=== PATIENT | female | born 1990 | race Two or more races ===

== ENCOUNTER 2024-12-11 07:14 | Inpatient (IN) | payer OTHER, SELFPAY ==
[2024-12-11] VITALS (122 sets, daily range): BP systolic 85–134; BP diastolic 47–99; PULSE 67–148; TEMP 35.9–36.8; O2SAT 96–100; BMI 35.3
--- OUTSIDE RECORDS SUMMARY | 2024-12-11 07:33 | XMS_ITS | Clinical Summary ---
Author Organization [facility] Address [address] [place] [id number] Care Team Providers Care Rn Spine Name Role Phone Renetta Serna DO Primary Care Provider [phone] Immunizations Immunization Administration Dates Next Due MODERNA COVID-19 (12+) MRNA, LNP-S, PF, 100 MCG/ 0.5 ML DOSE 10/01/2020,09/03/2020 Social History Tobacco Use Types Packs/Day Years Used Date Smoking Tobacco: Never Assessed Comments Unknown Sex and Gender Information Value Date Recorded Sex Assigned at Not on file Legal Sex Female 7:40 PM CDT Gender Identity Not on file Sexual Orientation Not on file Plan of Treatment Health Maintenance Due Date Last Done Comments Cervical Cancer Screening Pa p Smear (Age 30 to 64) Every 3 Years 1992 Annual Physical 1995 Hepatitis C 2010 DTaP, Tdap and Td Vaccines ( 1 - Tdap) 2011 Hepatitis B Vaccines (1 of 3 - 19+ 3-dose series) 2011 Cervical Cancer Screening Pa p with HPV Testing (Age 30 to 64) Every 5 Years 2022 Cervical Cancer Screening wi th HPV 2022 COVID-19 Vaccine (3 - 2023-2 5 season) 2024 10/01/2020, 09/03/2020 HPV Vaccines Aged Out No longer eligi ble based on patient's age to complete this topic Meningococcal B Vaccine Aged Out No l onger eligible based on patient's age to complete this topic Meningococcal Vaccine Aged Out No jair phoebe eligible based on patient's age to complete this topic Pneumococcal Vaccine: Pediatrics (0 to 5 Years) and At-Risk Patients (6 to 49 Years) Aged Out No longer eligible b ased on patient's age to complete this topic RSV Immunizations Under 20 Months Aged Out No longer eligible b ased on patient's age to complete this topic Insurance [facility] [address] [place] [id number] Care Teams Rn Spine Relationship Specialty Start Date End Date Renetta Serna DO [address] [place] [id number] PCP - General 03/04/14
--- OUTSIDE RECORDS SUMMARY | 2024-12-11 07:33 | XMS_ITS | Clinical Summary ---
Author Organization [facility] [address] Address [address] [place] [id number] Care Team Providers Care Supervisor Drawing Name Role Phone Unknown, Notinfile Primary Care Provider Unavail able Thea Almodovar DPT Unavailable [phone] Allergies No known active allergies Medications levonorgestreL (Kyleena) IUD 1 each by intrauterine route once Active Active Problems Comments Yes No known active problems Social History Tobacco Use Types Packs/Day Years Used Date Smoking Tobacco: Never Smokeless Tobacco: Never AUDIT-C Answer Date Recorded Q1: How often do you have a drink containing alc ohol? Monthly or less 04/03/2023 Q2: How many drinks containi ng alcohol do you have on a typical day when you are drinking? 1 or 2 04/03/2023 Q3: How often do you have si x or more drinks on one occasion? Less than monthly 04/03/2023 Comments Yes Sex and Gender Information Value Date Recorded Sex Assigned at Not on file Legal Sex Female 9:52 AM CDT Gender Identity Not on file Sexual Orientation Not on file Obstetrics History Para Term AB IAB SAB Ectopic Multiple Livin g Live Births 1 Date Outcome GA Total Labor Labor/2nd/3rd Weight Sex Type Anes PTL Nian A1 A5 Name Clin Current Last Filed Vital Signs Vital Sign Reading Time Taken Comments Blood Pressure 100/60 04/03/2023 10:09 AM CDT Pulse - - Temperature - - Respiratory Rate - - Oxygen Saturation - - Inhaled Oxygen Concentration - - Weight 62.6 kg (138 lb) 04/03/2023 10:09 AM CDT Height 160 cm (5' 3 ) 04/03/2023 10:09 AM CDT Body Mass Index 24.45 04/03/2023 10:09 AM CDT Plan of Treatment Health Maintenance Due Date Last Done Comments Cervical Cancer Screening 1992 Depression Screening 1992 Hepatitis C Screening 1992 DTaP/Tdap/Td Vaccine (1 - Tdap) 2003 Varicella Vaccines (1 of 2 - 13+ 2-dose series) 2005 Hepatitis B Screening 2010 Regular Well Visit/Exam 18-64 04/03/2024 04/03/2023 Covid-19 Vaccine (4 - 2023-2 5 season) 2024 07/25/2021, 10/01/2020, 09/03/2020 Influenza Vaccine (#1) 2024 2, 06/15/2020, 07/27/2019 HPV Vaccines Aged Out No longer eligi ble based on patient's age to complete this topic Pneumococcal vaccine <65 Aged Out No longer eligible based on patient's age to complete this topic Insurance [employer] OPEN ACCESS [employer] OPEN ACCESS Care Teams Supervisor Drawing Relationship Specialty Start Date End Date Unknown, Notinfile PCP - General 03/10/23 Thea Almodovar DPT [address] [facility] [address] [place] [id number] Physical Therapist Physical Therapy 07/12/24
--- OUTSIDE RECORDS SUMMARY | 2024-12-11 07:33 | XMS_ITS | Referral Summary ---
Author Organization [facility] [address] Address [address] [place] [id number] Care Team Providers Care Nuclear Medicine Specialist Name Role Phone Unknown, Notinfile Primary Care Provider Unavail able Thea Almodovar DPT Unavailable Allergies No known active allergies Medications levonorgestreL [...] on file Sexual Orientation Not on file Last Filed Vital Signs Vital Sign Reading [...] 04/03/2023 10:09 AM CDT Plan of Treatment Not on file Insurance [employer] OPEN ACCESS [employer]es [employer] OPEN ACCESS Care Teams Nuclear Medicine Specialist Relationship Specialty Start Date End Date Unknown, Notinfile PCP - General 03/10/23 Thea Almodovar DPT [id number] [facility] [address] [place] [address] Physical Therapist Physical Therapy 07/12/24
[2024-12-11 07:58] LABS: Basophils Percent Auto 0.3 % (0.2-1.2); Eosinophils Absolute Auto 0.2 K/mm3 (0-0.3); Eosinophils Percent Auto 2.4 % (0-4.4); Hemoglobin 12.6 g/dL (12.0-15.0); Immature Granulocyte Absolute 0.04 K/mm3 (0.00-0.031); Immature Granulocyte Percent A 0.5 % (0-0.5); Lymphocytes Absolute Auto 1.63 K/mm3 (0.9-3.2); Lymphocytes Percent Auto 21.8 % (18.3-44.2); Mean Corpuscular HGB Conc 34.1 g/dl (32-36); Mean Corpuscular Volume 91.1 fl (80-100); Mean Platelet Volume 12.1 fl (7.4-10.4); Monocytes Absolute Auto 0.5 K/mm3 (0.1-0.6); Monocytes Percent Auto 6.3 % (2.6-8.5); Neutrophils Absolute Auto 5.2 K/mm3 (1.3-6.7); Neutrophils Percent Auto 68.7 % (45.5-73.1); Platelet Count Result 118 k/mm3 (150-375); Red Blood Count 4.06 M/mm3 (4.2-5.4); Red Cell Distribution Width 12.9 % (11.5-14.5); White Blood Count 7.5 K/mm3 (4.5-10.0)
[2024-12-11 09:25] LABS: Syphilis IgG/IgM Antibody Negative (Negative)
[2024-12-11 09:40] LABS: HIV 1/2 Ab P24 Ag Result Negative (Negative)
--- NOTE | 2024-12-11 09:51 | PM.IMHP ---
H&P: HPI History of Present Illness Date/Time: 12/11/24 09:51 Chief Complaint: Rupture Her membranes at term Narrative: 34-year-old 1 para 0 whose last menstrual period was 03/10/2025, EDC 12/15/2024, confirmed by 9 week ultrasound presents at 39 and half weeks gestation with spontaneous rupture membranes at approximately 4:50 a.m.. She has a history of HSV 1 generally has been on preventive care. She is negative for group B strep Review of Systems Review of Systems: All systems reviewed & are unremarkable except as noted in HPI and below PMFSH Family History Family History Other Unknown family medical history Social History Social History Smoking status: Never smoker Second hand tobacco smoke exposure: No Substance use: never Do You Feel Safe in your Home?: Yes Lack of Transportation: No Lack of Food: Never True Current Housing: I Have Housing Concerned About Future Housing: No Difficulty Paying Gas/Electric Bills: No Difficulty Paying for Meds: No Currently Unemployed: No Education: Master's Degree or Higher Difficulty w/ Childcare or Family Care: No Spiritual care concerns: No Meds Home Medications and Allergies Home Medications ?Medication ?Instructions ?Recorded ?Confirmed ?Type vit no.95-ferrous 1 tablet PO DAILY 11/15/24 11/15/24 History fumarate 28 mg-folic acid 800 mcg tablet () Allergies Allergy/AdvReac Type Severity Reaction Status Date / Time No Known Allergies Allergy Verified 11/15/24 13:53 Vital Signs Vital Signs - 24 hr 12/11/24 08:17 12/11/24 08:19 12/11/24 08:26 Temperature 96.7 F L Pulse Rate 100 Blood Pressure 123/61 Oxygen Delivery Room Air 12/11/24 08:33 12/11/24 09:01 Temperature Pulse Rate 102 H 87 Blood Pressure 116/47 L 107/59 L Oxygen Delivery Exam Const: General: cooperative, healthy appearing and comfortable Nutritional Appearance: overweight Orientation/consciousness: oriented to person, oriented to place and oriented to time HENMT: Head: normal to inspection Resp: Effort & Inspection: normal respiratory effort Cardio: Rate: regular rate Rhythm: regular rhythm Heart sounds: S1 normal heart sound present and S2 normal heart sound present GI: Inspection: normal to inspection (Gravid soft uterus) : External Female Exam: normal external appearance Speculum Exam - Vagina: normal appearance of the vagina Speculum Exam - Cervix: normal appearance of the cervix (Cervix /. Clear fluid seen. FHTs reassuring) H&P: Results Labs Labs: Short CBC 12/11/24 Range/Units 07:47 WBC 7.5 (4.5-10.0) K/mm3 Hgb 12.6 (12.0-15.0) g/dL Hct 37.0 (37.0-47.0) % Plt Count 118 L (150-375) k/mm3 Assessment and Plan Assessment and plan (1) Term : Code(s): Z34.90 - Encounter for supervision of normal , unspecified, unspecified trimester Status: Acute Plan Spontaneous vaginal delivery is expected. She is an epidural candidate
[2024-12-11] MEDS: LACTATED RINGERS 1,000 ML 125 ML IV CONT ×3 (11:42→19:32)
[2024-12-11] MEDS: OXYTOCIN 30 UNITS/NS 500 ML 30 UNITS/500 ML BAG IV CONT (11:43)
--- NOTE | 2024-12-11 16:49 | WPDANESEPP ---
Anes - Eval Pre Procedure Procedure: Labor Pain Management Date/Time: 12/11/24 16:49 Surgeon: Leighann Oakley Preop Diagnosis: pain during labor Pre Op Diagnosis: Leaking Patient Data Age: 34 Gender: F Height: 1.6 m Weight: 90.5 kg Last Vital Signs Temp 98 F 12/11/24 12:00 Pulse 92 12/11/24 15:01 BP 93/71 L 12/11/24 15:01 O2 Del Method Room Air 12/11/24 08:19 Allergies Allergy/AdvReac Type Severity Reaction Status Date / Time No Known Allergies Allergy Verified 11/15/24 13:53 Home Medications ?Medication ?Instructions ?Recorded ?Confirmed ?Type vit no.95-ferrous 1 tablet PO DAILY 11/15/24 11/15/24 History fumarate 28 mg-folic acid 800 mcg tablet () Laboratory Tests 12/11/24 07:47 WBC 7.5 K/mm3 (4.5-10.0) RBC 4.06 L M/mm3 (4.2-5.4) Hgb 12.6 g/dL (12.0-15.0) Hct 37.0 % (37.0-47.0) MCV 91.1 fl (80-100) MCH 31.0 pg (26-34) MCHC 34.1 g/dl (32-36) RDW 12.9 % (11.5-14.5) Plt Count 118 L k/mm3 (150-375) MPV 12.1 H fl (7.4-10.4) Immature Gran % (Auto) 0.5 % (0-0.5) Neut % (Auto) 68.7 % (45.5-73.1) Lymph % (Auto) 21.8 % (18.3-44.2) [place] % (Auto) 6.3 % (2.6-8.5) Eos % (Auto) 2.4 % (0-4.4) Baso % (Auto) 0.3 % (0.2-1.2) Lymph # (Auto) 1.63 K/mm3 (0.9-3.2) [place] # (Auto) 0.5 K/mm3 (0.1-0.6) Eos # (Auto) 0.2 K/mm3 (0-0.3) Baso # (Auto) 0.0 K/mm3 (0.0-0.1) Abs Immat Gran (auto) 0.04 H K/mm3 (0.00-0.031) Absolute Neuts (auto) 5.2 K/mm3 (1.3-6.7) Absolute Nucleated RBC 0.000 K/mm3 (0.0-0.012) Nucleated RBC % 0.0 % (0.0-0.2) Syphilis IgG/IgM Ab Negative (Negative) HIV 1&2 Ab/P24 Ag 4thGn Negative (Negative) Blood Type A Positive Antibody Screen Negative Patient hx anesthesia problems: none Family hx anesthesia problems: none Results Review: All pre-operative results and documents have been reviewed as part of the pre-operative evaluation. [facility] Family History Family History Other Unknown family medical history Social History Social History Smoking status: Never smoker Second hand tobacco smoke exposure: No Substance use: never Do You Feel Safe in your Home?: Yes Lack of Transportation: No Lack of Food: Never True Current Housing: I Have Housing Concerned About Future Housing: No Difficulty Paying Gas/Electric Bills: No Difficulty Paying for Meds: No Currently Unemployed: No Education: Master's Degree or Higher Difficulty w/ Childcare or Family Care: No Spiritual care concerns: No Exam Day of Procedure 12/11/24 16:49
--- NOTE | 2024-12-11 17:18 | PM.OBPNLAB ---
Pain Control Date/time seen: 12/11/24 17:18 Pain control: tolerating well and epidural (being placed) Pelvic Exam Dilation (cm): 3 Amniotic membrane status: Leaking Contractions Monitor mode: External
[2024-12-11] MEDS: AMPICILLIN 2 GM/NS 100 ML 2 GM/100 ML BAG IVPB (23:14)
[2024-12-12] VITALS (228 sets, daily range): BP systolic 97–154; BP diastolic 63–128; PULSE 32–149; RESP 16; TEMP 35.8–37.8; O2SAT 78–100
[2024-12-12] MEDS: ONDANSETRON INJ 4 MG/2 ML VIAL IV PUSH (00:46)
[2024-12-12] MEDS: AMPICILLIN 1 GM/NS 50 ML 1 GM/50 ML BAG IVPB ×3 (03:23→11:26)
[2024-12-12] MEDS: LACTATED RINGERS 1,000 ML 125 ML IV CONT (04:16)
[2024-12-12] MEDS: ACETAMINOPHEN 500 MG TABLET 1000 MG PO (04:17)
[2024-12-12] MEDS: CALCIUM CARBONATE (TUMS) 500 MG (200 MG ELEMENTAL) PO (04:18)
[2024-12-12] MEDS: diphenhydrAMINE HCl INJ 50 MG/ML VIAL 25 MG IV PUSH (06:56)
--- NOTE | 2024-12-12 07:17 | PM.OBPNLAB ---
Pain Control Date/time seen: 12/12/24 07:17 Pain control: tolerating well and epidural Pelvic Exam Dilation (cm): 7 Amniotic membrane status: Leaking Contractions Monitor mode: External Contraction frequency: 3 Status Comments: temp was up now ok .. slow progress
--- NOTE | 2024-12-12 08:51 | PM.OBPNLAB ---
Pain Control Date/time seen: 12/12/24 08:51 Comfortable with epidural. Pelvic Exam Dilation (cm): 8 Effacement (%): 100 station: 0 Amniotic membrane status: Leaking Contractions Monitor mode: External Contraction frequency: 3 Status status: Category l Assessment and Plan Pitocin rate (mU/min): 6 Comments: A: SROM at 39 4/7. EFW by US was 7#5 oz at 36 weeks, so today EFW is approximately 8.5-9#. P: Ampicillin for ROM >18 h. Contractions not currently adequate by IUPC. Reassuring NST. Continue labor augmentation. Anticipate .
--- NOTE | 2024-12-12 12:40 | PM.OBPNLAB ---
Pain Control Date/time seen: 12/12/24 12:40 Comfortable. Pushing currently. Pelvic Exam Dilation (cm): 10 Effacement (%): 100 station: +2 Amniotic membrane status: Leaking Contractions Monitor mode: External Contraction frequency: 3 Status status: Category l Assessment and Plan Comments: Continue pushing. Anticipate .
[2024-12-12] MEDS: OXYTOCIN 30 UNITS/NS 500 ML 30 UNITS/500 ML BAG 999 UNITS IV CONT (13:51)
[2024-12-12] MEDS: miSOPROStol 200 MCG TABLET 800 MCG (13:57)
--- NOTE | 2024-12-12 14:04 | PM.OBPRVD ---
OB - Vaginal Delivery Note Procedure Delivery date: 12/12/24 Induction method: None Delivery augmentation: Pitocin Delivery monitor: External FHT, External Uterine and Internal Uterine Route of delivery: Episiotomy description: None Laceration Description: Perineal - 2nd Degree Delivery repair: vicryl (3-0) Specimen: Yes (Placenta, cord blood) Quantitative Blood Loss (ml): 420 Anesthesia type: Epidural Disposition: PACU Complications: None Narrative: 34 y/o G1 at 39 4/7 weeks gestation who presented to the hospital after SROM clear fluid. Labor was augmented with oxytocin. She received an epidural for pain control. Her labor progressed and her cervix dilated completely. She was given ampicillin for prolonged ROM. She pushed with good effort and delivered the infant's head to the perineum. A loose nuchal cord was splinted. The body delivered, followed by a gush of meconium-stained fluid. The nose and mouth were bulb suctioned. The cord was clamped and cut. The was handed off the field. Cord blood was collected. The placenta delivered spontaneously and was grossly normal in appearance. The usual 3 vessel cord was noted. A second degree midline perineal laceration was sustained. This was reapproximated using 3 0 Vicryl in the usual layered fashion. Excellent hemostasis resulted as did excellent reapproximation of the normal anatomy. Needle and instrument counts were correct. The patient was taken to recovery room in stable condition. The went to the special care nursery. I was present and scrubbed for the entire delivery. Baby Date of : 12/12/24 Time of : 13:38 Gestational Age by Date: 39 gender: Male Weight (pounds): 9 Weight (ounces): 2 presentation: vertex position: Left Occiput Anterior Placenta delivery description: Spontaneous and Normal Configuration Cord Vessel Description: 3 Vessels and Nuchal Cord
--- NOTE | 2024-12-12 14:07 | P.DS_ITS ---
DS: Admitting Diagnosis Discharge Date 12/14/24 Admitting Diagnosis IUP at 39 4/7 weeks SROM DS: Discharge Diagnosis Discharge Diagnosis (1) (normal spontaneous vaginal delivery): Code(s): O80 - Encounter for full-term uncomplicated delivery Status: Acute OB - DS: Summary OB Procedures : None OB Procedures Intrapartum: Spontaneous Vag Delivery OB Procedures: : Antibiotics Peripartum Data Laceration Description: Perineal - 2nd Degree Episiotomy description: None Time Spent with Patient Time attestation: Total time spent providing and/or coordinating discharge services: Discharge Plan Discharge Attending physician on discharge: Gary Varghese Discharging Clinician: Gary Varghese Patient Disposition: Home Activity: pelvic rest Diet: regular Discharge Instructions: Call or return if temperature above 100.4? F, increased abdominal pain, increased vaginal bleeding or any new problems. Patient Language: Ugandan Stand Alone Forms: General Discharge Information Follow-up/Referrals: Gary Varghese MD [Physician] - 6 Weeks Discharge Medications: New ibuprofen 600 mg tablet 600 mg PO Q6H PRN (Reason: cramps) Qty: 30 0RF Continued PNV cmb#95-ferrous fumarate-FA [] 28 mg iron- 800 mcg tablet 1 tablet PO DAILY Date of admission: 12/11/24 07:14 Primary Care Provider: UNKNOWN,DOCTOR Admitting Provider: Gary Varghese Attending physician on admission: Gary Varghese Condition: Stable
[2024-12-12] MEDS: IBUPROFEN 600 MG TABLET PO ×2 (14:45→22:58)
[2024-12-12] MEDS: ACETAMINOPHEN 325 MG TABLET 650 MG PO (16:34)
--- NOTE | 2024-12-12 17:07 | PC.NURSE ---
Patient transferred to post room #288 via wheelchair. Support person present. Oriented to unit, room, information board, rooming in, admission packet and security measures. Patient verbalizes understanding.
[2024-12-12] MEDS: HYDROcodone/acetaminophen (*CRX) 10-325 MG TABLET 1 TAB PO (20:08)
[2024-12-12] MEDS: DOCUSATE SODIUM 100 MG CAPSULE PO (23:00)
[2024-12-13] MEDS: ACETAMINOPHEN 325 MG TABLET 650 MG PO ×3 (03:09→19:10)
[2024-12-13 05:17] LABS: Hematocrit 30.1 % (37.0-47.0); Hemoglobin 10.2 g/dL (12.0-15.0)
[2024-12-13] MEDS: IBUPROFEN 600 MG TABLET PO ×3 (06:44→19:01)
[2024-12-13 07:30] VITALS: BP 95/56; PULSE 68; RESP 18; TEMP 36.6; O2SAT 97
[2024-12-13] MEDS: DOCUSATE SODIUM 100 MG CAPSULE PO ×2 (08:08→19:01)
[2024-12-13] MEDS: MULTIVIT/MIN/PREN/FOL AC/IRON TABLET 1 TAB PO (08:08)
--- NOTE | 2024-12-13 08:09 | P.PNOB_ITS ---
OB - PN: Subj Subjective Date/time seen: 12/13/24 08:09 Narrative: Pain OK. OB - PN: Obj Data Labs 12/13/24 04:47 Labs: Laboratory Results - last 24 hr 12/13/24 04:47 Hgb 10.2 L Hct 30.1 L OB - PN A/P Plan day: 1 Comments: A: PPD#1, doing well. P: Routine care. Exam 2 Psych: Other: AVSS ABD soft, nontender, fundus firm EXT nontender
[2024-12-13 13:00] VITALS: BP 102/60; PULSE 84; RESP 18; TEMP 36.4; O2SAT 96
--- NOTE | 2024-12-13 13:57 | WPDANLDPN2 ---
Anes-Prog Note L&D Date/Time: 12/13/24 13:57 Comfortable throughout: labor and delivery Neuraxial method: epidural Epidural/Spinal procedure site: clean & non-tender Neuro status: Neuro function grossly intact. Cardiovascular status: normal Respiratory status: normal Airway patency: baseline Mental status: baseline Post-Op hydration status: normal Vital Signs: Last Vital Signs Temp 36.4 C 12/13/24 13:00 Pulse 84 12/13/24 13:00 Resp 18 12/13/24 13:00 BP 102/60 12/13/24 13:00 Pulse Ox 96 12/13/24 13:00 O2 Del Method Room Air 12/11/24 08:19 Pain score (VAS): 10 I/O: Intake & Output 12/12/24 12/13/24 12/13/24 23:59 07:59 15:59 Intake Total 240 Balance 240 Post-procedural complaints: none Patient feedback: Patient satisfied with anesthetic care.
--- NOTE | 2024-12-13 18:09 | PC.NURSE ---
[id number]. Introductions were made, then consulted with patient to assess needs related to . Discussed with mother her plans to feed her and the experience so far. is in level 2 nursery for low blood sugar. Helped mom set up her spectra pump. Instructions given on cleaning, care, usage, that there should be no pain, pumping schedule for milk production, collection, and storage of human milk. Patient was assessed for correct placement, flange size, to pump for comfort and nipple stretching/stimulation for adequate milk production every 3 hours (8 times in 24 hours) 1-2 times at night. Parents are encouraged to record the pumping schedule on the feeding sheet.?Encouraged mother to express any questions or concerns she has regarding feedings. Advised her to call out for assistance with the next feeding downstairs in level 2 nursery. Mom reports she would like to take a nap for the next feeding, but would like to attempt to breastfeed for the feeding after that and plans to call for help. Reviewed the blue feeding worksheet for required output and feeding at least 8-12 times every 24 hours. Resources provided for inpatient and outpatient services with the feeding sheet, mom/baby guide, and name/number written on the communication board. Mother voiced understanding of information and will call if there is a request for assistance. Reported to the Primary RN. 1600. Assisted with feeding . Mom attempted to feed on the right breast in cross cradle position. was not able to maintain an appropriate latch. Many attempts made, infant with a few sucks and then would break the latch or fall asleep. Mother attempted to latch for about 20 min. was supplemented with 2cc of EBM via syringe and 18 cc with similac formula. Reviewed paced bottle feeding with mom and dad. Mom followed feeding with s2s and burping infant. Mom and dad encouraged to call for help with next feeding, questions answered and reported to primary RN.
[2024-12-13 19:15] VITALS: BP 106/68; PULSE 75; RESP 16; TEMP 36.5; O2SAT 98
[2024-12-14] MEDS: ACETAMINOPHEN 325 MG TABLET 650 MG PO ×2 (00:48→13:46)
[2024-12-14] MEDS: IBUPROFEN 600 MG TABLET PO ×3 (00:48→17:51)
--- NOTE | 2024-12-14 08:00 | PC.NURSE ---
Consulted with patient to assess needs related to . Discussed with mother her successes, concerns and any questions she has. Infant blood sugar was 52 which requires supplementation. Parents have been supplementing infant per maternal request. Assisted mother with attempting to latch infant at this time. Mother has been using a nipple shield for attempted feeds. Attempted to latch with and without the nipple shield in place - infant would suckle a few times and become frustrated. Mother quickly became overwhelmed and states that she would like to pump for this feeding and try placing infant to breast with the next feeding. Mother will call for assistance if needed at next feeding. Reported to the Primary RN.
[2024-12-14 08:05] VITALS: BP 115/80; PULSE 73; RESP 16; TEMP 36.6; O2SAT 98
[2024-12-14] MEDS: MULTIVIT/MIN/PREN/FOL AC/IRON TABLET 1 TAB PO (08:29)
[2024-12-14] MEDS: DOCUSATE SODIUM 100 MG CAPSULE PO ×2 (08:31→17:51)
--- NOTE | 2024-12-14 13:35 | P.PNOB_ITS ---
OB - PN: Subj Subjective Date/time seen: 12/14/24 13:35 Narrative: Pain OK. Would like circumcision for son. OB - PN: Obj Data Labs 12/13/24 04:47 OB - PN A/P Assessment and Plan (1) (normal spontaneous vaginal delivery): Code(s): O80 - Encounter for full-term uncomplicated delivery Status: Acute Plan Comments: A: PPD#2, doing well. P: Reviewed circ. Home to f/u 6 weeks. Exam 2 Psych: Other: AVSS ABD soft, nontender, fundus firm EXT nontender
[2024-12-14] MEDS: BENZOCAINE 20% AER SPR (*SP) 56 GM CAN 1 SPRAY TOPICAL (17:52)
[2024-12-14] MEDS: WITCH HAZEL 40 PADS 1 PAD TOPICAL (17:52)
[2024-12-16 09:33] VITALS: BP 122/77; PULSE 61; RESP 20; TEMP 36.3; O2SAT 97
== END 2024-12-14 18:00 | disposition home or self-care (01) | DRG 806 ==
LOC: ANHLDR 12-12 14:09 → ANHOB2 12-12 17:18
PROVIDERS: Admitting Provider Obstetrics & Gynecology; Visit Provider Obstetrics & Gynecology
DX: O75.2 Pyrexia during labor, not elsewhere classified (principal); O63.9 Long labor, unspecified; Z37.0 Single live birth; O70.1 Second degree perineal laceration during delivery; O69.81X0 Labor and delivery complicated by cord around neck, without compression, not applicable or unspecified; Z3A.39 39 weeks gestation of pregnancy
CPT/HCPCS: 36415; 85014; 85018; 85025; 86593; 86703; 86850; 86900; 86901; 88307; A9270; G0432; J0290; J1200; J2405; J2590; J2795; J7120